=== PATIENT | male | born 1940 | race Caucasian/White ===

== ENCOUNTER → 2016-06-26 | Outpatient (CLI) | payer MEDICARE ==
--- NOTE | 2016-06-26 13:35 | CTL ---
EXAMINATION TYPE: CT Low Dose Lung DATE OF EXAM ORDERED: 06/26/2016 1:05 PM COMPARISON: None HISTORY: Tobacco use. Lung cancer screening CT DLP: [address] CTDI: 3.27 mGy Automated exposure control for dose reduction was used. SCREENING VISIT: Initial COMPARISON: None TECHNIQUE: Low dose computed tomography scan was performed through the chest at 1 mm thick sections a nd reconstructed images in the coronal plane at [address] DIAGNOSTIC QUALITY: Limited, but interpretable FINDINGS: LUNG NODULES: None. LUNGS: COPD: Severity: None Fibrosis: Severity: None Lymph nodes: No enlarged Other findings: Small area of pneumonitis within the right cardiomediastinal recess anteriorly. RIGHT PLEURAL SPACE: Effusion: None Calcification: None Thickening: None Pneumothorax: None LEFT PLEURAL SPACE: Effusion: None Calcification: None Thickening: None Pneumothorax: None HEART: Heart Size: Normal Coronary calcification: Yes Pericardial effusion: No Coronary calcification: Yes OTHER FINDINGS: Upper abdomen: Unremarkable Bony thorax: Normal Supraclavicular region: Normal Other: Ascending thoracic aortic level the main pulmonary artery is 3.9 cm. The main pulmonary artery bifurcation is 3.0 cm. IMPRESSION: 1. No suspicious changes to suggest neoplasm. 2. Limited examination. FOLLOW UP CT CHEST RECOMMENDATION: As clinically indicated, screening on schedule CT LUNG RAD: Lung rad 2
== END | disposition home or self-care (01) ==
LOC: RADCTMAIN 12:24
PROVIDERS: ATTEND Internal Medicine Sleep Medicine
DX: Z12.2 Encounter for screening for malignant neoplasm of respiratory organs (principal); Z87.891 Personal history of nicotine dependence

== ENCOUNTER → 2016-07-02 | Outpatient (CLI) | payer MEDICARE ==
--- NOTE | 2016-07-02 08:26 | MR ---
EXAMINATION TYPE: MR lumbar spine wo con DATE OF EXAM: 07/02/2016 7:27 AM COMPARISON: CT abdomen April 08, 2016 HISTORY: Low back pain and lumbar disc disease per order. Pain for 4 months into bilateral buttocks p er patient TECHNIQUE: Multiplanar, multisequence imaging of the lumbar spine is performed without IV contrast. FINDINGS: Exam is slightly suboptimal due to patient's large body habitus. Sagittal images of the lum bar spine show vertebral body heights and alignment to appear satisfactory. Multilevel disc desiccati on is seen. Vacuum disc phenomenon is present at L3-L4 and L5-S1 levels. There is mild disc space jef rowing L3-L4 level. There is advanced disc space narrowing with heterogeneous Modic type II endplate changes and moderate spurring at L5-S1 level. Generalized spinal canal narrowing in the lower lumbar spine is present. Posterior disc herniation L5-S1 level as seen on sagittal images. There is addition al mild multilevel anterior spurring in the mid to lower lumbar spine. The conus medullaris is normal in position and signal ending at inferior L1 vertebral body level. Axial images are significantly degraded by artifact related to patient's body habitus. Axial images s how the T12-L1, L1-L2, and L2-L3 levels to likely be within normal limits. Axial images at the L3-L4 level show mild facet degenerative changes bilaterally. There is mild to mo derate broad disc bulge mildly effacing anterior thecal sac on axial image 13. There is mild right gr eater than left anterior inferior neural foraminal narrowing at this level identified. Axial images at L4-L5 level show mild facet degenerative changes bilaterally. There is mild broad dis c bulge present. Spinal canal is minimally effaced anteriorly. There is mild to moderate left and mil d right-sided anterior inferior neural foraminal narrowing noted. Axial images at L5-S1 level show mild facet degenerative changes bilaterally. There is left paracentr al focal disc protrusion. There is prominence of epidural fat at this level noted. There is more ashutosh re bilateral neural foraminal narrowing at this level with effacement of both L5 nerves suspected on sagittal images 12 and 13 on the right and sagittal images 2 and 3 on the left. IMPRESSION: Multilevel degenerative changes in the lumbar spine with findings most pronounced at L5-S 1 level noted, there is marked disc space narrowing and moderate to severe spurring. There appears to be advanced bilateral neural foraminal narrowing with suspected effacement of both L5 nerves.
== END | disposition home or self-care (01) ==
LOC: RADMRIMAIN 06:37
PROVIDERS: ATTEND Orthopaedic Surgery Orthopaedic Surgery of the Spine
DX: M48.06 Spinal stenosis, lumbar region (principal); M47.817 Spondylosis without myelopathy or radiculopathy, lumbosacral region
CPT/HCPCS: 72148

== ENCOUNTER → 2016-07-11 | Outpatient (CLI) | payer MEDICARE ==
--- NOTE | 2016-07-11 15:17 | US ---
EXAMINATION TYPE: US abdomen complete DATE OF EXAM: 07/11/2016 2:08 PM COMPARISON: NONE CLINICAL HISTORY: R18.8 Ascites. EXAM MEASUREMENTS: Liver Length: 16.6 cm Gallbladder Wall: 0.4 cm CBD: 0.2 cm Spleen: 16.5 Right Kidney: 11.9 x 4.8 x 5.0cm Left Kidney:14.2 x 5.6 x 5.7 TECHNOLOGIST IMPRESSION: Patient of large body habitus carrying most of his weight in his abdomen, e xtensive edema in tissue, and excessive overlying bowel gas Pancreas: portions visualized wnl, partially obscured by overlying bowel gas Liver: upper limits of normal in size, heterogeneous Gallbladder: not well visualized due to body habitus/overlying bowel gas, difficult to exclude some sludge Evidence for sonographic Vu's sign: no CBD: wnl Spleen: splenomegaly Right Kidney: wnl Left Kidney: parapelvic cyst measuring 1.1 x 1.6 x1.8cm Upper IVC: wnl Abd Aorta: only able to visualize proximally due to large abd/overlying bowel, prox wnl Small amount of ascites. IMPRESSION: 1. Small amount of ascites. 2. Left peripelvic cyst. 3. There is limitation due to patient body habitus
== END | disposition home or self-care (01) ==
LOC: RADUSWWP 13:30
PROVIDERS: ATTEND Internal Medicine Sleep Medicine
DX: R18.8 Other ascites (principal); R93.9 Diagnostic imaging inconclusive due to excess body fat of patient
CPT/HCPCS: 76700

== ENCOUNTER 2016-07-30 15:17 | Inpatient (IN) | payer MEDICARE ==
[2016-07-30] MEDS ORDERED: RX INFO: IV CONTRAST WAS GIVEN 1 EACH MISC MISCELLANE PRN (17:11)
--- NOTE | 2016-07-30 17:23 | ED ---
General Adult HPI - General Chief complaint: Abdominal Pain Stated complaint: fast breathing Time Seen by Provider: 07/30/16 16:59 Source: patient, family Mode of arrival: wheelchair Limitations: no limitations - History of Present Illness Initial comments: 75-year-old male patient presents to emergency department today for complaints of abdominal distention and shortness of breath. Patient states that he has noticed an increase in his abdominal girth over the last couple of days. Patient states also that for the last couple of days he has had increased shortness of breath, especially with activity. Patient does notice some tenderness in the right upper quadrant but denies any pain at rest. Patient denies any nausea, vomiting, diarrhea, or constipation. Patient denies any chest pain, dizziness, or weakness. He reports that his stool is lidar analyst in color and his urine is dark and yellow. Patient also reports some swelling of his feet and ankles. Patient does have a known history of fatty liver and cirrhosis for which he is treated by Dr. Shaw. - Related Data Home Medications Medication Instructions Recorded Confirmed Insulin Aspart [NovoLOG Flexpen] See Protocol SQ AC-TID 04/23/15 07/30/16 Insulin Glargine [Lantus] 80 unit SQ HS 04/23/15 07/30/16 Cyanocobalamin [Vitamin B-12] 500 mcg PO DAILY 07/30/16 07/30/16 Divalproex Sodium [Depakote] 1,000 mg PO HS 07/30/16 07/30/16 Docusate [Colace] 100 mg PO DAILY 07/30/16 07/30/16 Furosemide [Lasix] 20 mg PO DAILY 07/30/16 07/30/16 Gabapentin [Neurontin] 300 mg PO TID 07/30/16 07/30/16 QUEtiapine FUMARATE [SEROquel] 100 mg PO QAM 07/30/16 07/30/16 QUEtiapine [SEROquel] 200 mg PO HS 07/30/16 07/30/16 Spironolactone [Aldactone] 25 mg PO DAILY 07/30/16 07/30/16 metFORMIN HCL 1,000 mg PO BID 07/30/16 07/30/16 Previous Rx's Medication Instructions Recorded Artificial Tears-Hypromellose 2 drops LEFT EYE Q1H PRN #0 bottle 05/09/15 [Artificial Tear Drops] Atorvastatin Calcium [Lipitor] 80 mg PO DAILY #30 tablet 05/09/15 Cholecalciferol [Vitamin D3] 5,000 unit PO DAILY@1200 #150 tab 05/09/15 Allergies Allergy/AdvReac Type Severity Reaction Status Date / Time No Known Allergies Allergy Verified 07/30/16 16:15 Review of Systems ROS Statement: Those systems with pertinent positive or pertinent negative responses have been documented in the HPI. ROS Other: All systems not noted in ROS Statement are negative. Past Medical History Past Medical History: COPD, Diabetes Mellitus, Hyperlipidemia, Hypertension, Liver Disease, Prostate Disorder, Thyroid Disorder Additional Past Medical History / Comment(s): neuropathy, oxygen use at night, blood in stool, fatty liver-'alpha 1", arthritis, rash on stomach, CIRRosis History of Any Multi-Drug Resistant Organisms: MRSA Date of last positivie culture/infection: 2009 approx MDRO Source:: rt hand Past Surgical History: Orthopedic Surgery Additional Past Surgical History / Comment(s): alcon carpal tunnel, alcon rotator cuff shoulders, alcon cataracts, surgery on eyelid-rt eye Past Anesthesia/Blood Transfusion Reactions: No Reported Reaction Past Psychological History: Anxiety, Depression Smoking Status: Former smoker Past Alcohol Use History: None Reported Additional Past Alcohol Use History / Comment(s): Patient was a smoker of 2 packs per day for 43 years. He quit 7 years ago. He does have a history of heavy alcohol use but does not drink now. Patient lives at home with his who is his guardian. He worked as a shingles roofer helper in the past for 30 years. Past Drug Use History: None Reported - Past Family History Son(s) Family Medical History: Cancer Additional Family Medical History / Comment(s): She has 3 sons and one has from brain cancer, one due to a fall 1 antitrypsin disorder that required lung transplant, one son from home fire Father Family Medical History: Liver Disease Additional Family Medical History / Comment(s): Father from alcoholism. Mother Additional Family Medical History / Comment(s): A she is unsure when his mother from. Brother(s) Additional Family Medical History / Comment(s): Patient was one of 16 children and detailed history is not able to be obtained from the patient. General Exam Limitations: no limitations General appearance: alert, in no apparent distress Head exam: Present: atraumatic, normocephalic Eye exam: Present: normal appearance, PERRL, EOMI. Absent: scleral icterus, conjunctival injection, nystagmus, periorbital swelling ENT exam: Present: normal exam, normal oropharynx, mucous membranes moist, TM's normal bilaterally. Absent: mucous membranes dry Neck exam: Present: normal inspection. Absent: tenderness, lymphadenopathy Respiratory exam: Present: rales (Rt Lower lobe). Absent: respiratory distress , wheezes, rhonchi, stridor, chest wall tenderness, accessory muscle use, decreased breath sounds Cardiovascular Exam: Present: regular rate, normal rhythm, normal heart sounds. Absent: irregular rhythm, systolic murmur, diastolic murmur, rubs, gallop, clicks GI/Abdominal exam: Present: distended, tenderness (Right upper quadrant tenderness.), normal bowel sounds, organomegaly, other (Denies large, rounded, and firm. Tympany noted upon percussion all quadrants.). Absent: soft, guarding, rebound, rigid Extremities exam: Present: normal inspection Neurological exam: Present: alert, oriented X3, CN II-XII intact. Absent: altered Psychiatric exam: Present: normal affect, normal mood Skin exam: Present: warm, dry, intact, normal color. Absent: rash, cyanosis, urticaria Course Vital Signs 07/30/16 07/30/16 07/30/16 16:11 17:56 19:33 Temperature 98.4 F 98.2 F Pulse Rate 79 71 82 Respiratory 20 18 18 Rate Blood Pressure 174/71 140/62 124/59 O2 Sat by Pulse 91 L 94 L 96 Oximetry EKG Findings - EKG Comments: EKG Findings:: EKG obtained at 1629 reveals normal sinus rhythm, with a left axis deviation, low voltage QRS, septal infarct, age undetermined. Ventricular rate 89, CO interval 172, QRS duration 80, QT 358, QTC 435. Medical Decision Making - Medical Decision Making 75-year-old male patient presented to emergency department today for complaints of increased swelling to his abdomen, mild swelling to his feet and ankles, increase in shortness of breath over the last couple of days. Patient does have a known history of cirrhosis and fatty liver. Patient has had abdominal ascites before but has never been enough fluid to drain. We did obtain a CT of the abdomen and pelvis which showed moderate marked peritoneal fluid in all 4 quadrants. Patient did receive an EKG and chest x-ray which showed no acute processes. Patient will be admitted with GI consult for evaluation of the ascites. Case has been discussed with Dr. Alpesh MORRISON attending. - Lab Data Result diagrams: 07/30/16 17:20 07/30/16 17:20 Lab Results 07/30/16 07/30/16 07/30/16 Range/Units 17:20 17:20 17:20 WBC 6.1 (3.8-10.6) k/uL RBC 4.11 L (4.30-5.90) m/uL Hgb 14.4 (13.0-17.5) gm/dL Hct 40.5 (39.0-53.0) % MCV 98.5 (80.0-100.0) fL MCH 35.0 (25.0-35.0) pg MCHC 35.5 (31.0-37.0) g/dL RDW 15.0 (11.5-15.5) % Plt Count 127 L (150-450) k/uL Neutrophils % 52 % Lymphocytes % 33 % Monocytes % 9 % Eosinophils % 2 % Basophils % 1 % Neutrophils # 3.2 (1.3-7.7) k/uL Lymphocytes # 2.0 (1.0-4.8) k/uL Monocytes # 0.6 (0-1.0) k/uL Eosinophils # 0.1 (0-0.7) k/uL Basophils # 0.0 (0-0.2) k/uL PT (9.0-12.0) sec INR (<1.1) APTT (22.0-30.0) sec Sodium 140 (137-145) mmol/L Potassium 4.3 (3.5-5.1) mmol/L Chloride 100 (98-107) mmol/L Carbon Dioxide 28 (22-30) mmol/L Anion Gap 12 mmol/L BUN 21 H (9-20) mg/dL Creatinine 0.82 (0.66-1.25) mg/dL Est GFR (MDRD) Af Amer >60 (>60 ml/min/1.73 sqM) Est GFR (MDRD) Non-Af >60 (>60 ml/min/1.73 sqM) Glucose 141 H (74-99) mg/dL Calcium 9.1 (8.4-10.2) mg/dL Total Bilirubin 1.8 H (0.2-1.3) mg/dL AST 88 H (17-59) U/L ALT 58 (21-72) U/L Alkaline Phosphatase 128 H (38-126) U/L Total Creatine Kinase 294 H (55-170) U/L CK-MB (CK-2) 2.3 (0.0-2.4) ng/mL CK-MB (CK-2) Rel Index 0.8 Troponin I <0.012 (0.000-0.034) ng/mL NT-Pro-B Natriuret Pep pg/mL Total Protein 7.8 (6.3-8.2) g/dL Albumin 3.4 L (3.5-5.0) g/dL Amylase 35 (30-110) U/L Lipase 99 (23-300) U/L Urine Color Urine Appearance (Clear) Urine pH (5.0-8.0) Ur Specific Wolbach (1.001-1.035) Urine Protein (Negative) Urine Glucose (UA) (Negative) Urine Ketones (Negative) Urine Blood (Negative) Urine Nitrate (Negative) Urine Bilirubin (Negative) Urine Urobilinogen (<2.0) mg/dL Ur Leukocyte Esterase (Negative) 07/30/16 07/30/16 07/30/16 Range/Units 17:20 17:20 17:45 WBC (3.8-10.6) k/uL RBC (4.30-5.90) m/uL Hgb (13.0-17.5) gm/dL Hct (39.0-53.0) % MCV (80.0-100.0) fL MCH (25.0-35.0) pg MCHC (31.0-37.0) g/dL RDW (11.5-15.5) % Plt Count (150-450) k/uL Neutrophils % % Lymphocytes % % Monocytes % % Eosinophils % % Basophils % % Neutrophils # (1.3-7.7) k/uL Lymphocytes # (1.0-4.8) k/uL Monocytes # (0-1.0) k/uL Eosinophils # (0-0.7) k/uL Basophils # (0-0.2) k/uL PT 14.1 H (9.0-12.0) sec INR 1.4 (<1.1) APTT 27.1 (22.0-30.0) sec Sodium (137-145) mmol/L Potassium (3.5-5.1) mmol/L Chloride (98-107) mmol/L Carbon Dioxide (22-30) mmol/L Anion Gap mmol/L BUN (9-20) mg/dL Creatinine (0.66-1.25) mg/dL Est GFR (MDRD) Af Amer (>60 ml/min/1.73 sqM) Est GFR (MDRD) Non-Af (>60 ml/min/1.73 sqM) Glucose (74-99) mg/dL Calcium (8.4-10.2) mg/dL Total Bilirubin (0.2-1.3) mg/dL AST (17-59) U/L ALT (21-72) U/L Alkaline Phosphatase (38-126) U/L Total Creatine Kinase (55-170) U/L CK-MB (CK-2) (0.0-2.4) ng/mL CK-MB (CK-2) Rel Index Troponin I (0.000-0.034) ng/mL NT-Pro-B Natriuret Pep 153 pg/mL Total Protein (6.3-8.2) g/dL Albumin (3.5-5.0) g/dL Amylase (30-110) U/L Lipase (23-300) U/L Urine Color Yellow Urine Appearance Clear (Clear) Urine pH 5.0 (5.0-8.0) Ur Specific Wolbach 1.013 (1.001-1.035) Urine Protein Negative (Negative) Urine Glucose (UA) Negative (Negative) Urine Ketones Negative (Negative) Urine Blood Negative (Negative) Urine Nitrate Negative (Negative) Urine Bilirubin Negative (Negative) Urine Urobilinogen 2.0 (<2.0) mg/dL Ur Leukocyte Esterase Negative (Negative) - Radiology Data Radiology results: report reviewed, image reviewed CT of the abdomen and pelvis revealed a new finding of moderate-marked peritoneal fluid in all 4 quadrants of the abdomen and pelvis. Chest x-ray reveals no acute process. Disposition Clinical Impression: Ascites, Cirrhosis Disposition: ADMITTED IP TO THIS [facility] Condition: Stable Decision to Admit Reason: Admit from EC Decision Date: 07/30/16 Decision Time: 19:50
[2016-07-30 17:34] LABS: Basophils % (A) 1 %; CH 34.4; CHCM 35.1; Eosinophils # (A) 0.1 k/uL (0-0.7); Eosinophils % (A) 2 %; HCT 40.5 % (39.0-53.0); HDW 2.58; HGB 14.4 gm/dL (13.0-17.5); Luc # (Auto) 0.17; Luc % (Auto) 3; Lymphocytes % (A) 33 %; MCHC 35.5 g/dL (31.0-37.0); MCV 98.5 fL (80.0-100.0); Mean Platelet Volume 7.4; Monocytes # (A) 0.6 k/uL (0-1.0); Monocytes % (A) 9 %; Neutrophils # (A) 3.2 k/uL (1.3-7.7); Neutrophils % (A) 52 %; RBC 4.11 m/uL (4.30-5.90); WBC 6.1 k/uL (3.8-10.6); WBC (Perox) 6.12
[2016-07-30 17:43] LABS: INR 1.4 (<1.1); Partial Thromboplastin Time 27.1 sec (22.0-30.0); Prothrombin Time 14.1 sec (9.0-12.0)
[2016-07-30 17:51] LABS: ALT 58 U/L (21-72); AST 88 U/L (17-59); Alkaline Phosphatase 128 U/L (38-126); Amylase 35 U/L (30-110); Anion Gap 12 mmol/L; Blood Urea Nitrogen 21 mg/dL (9-20); Calcium 9.1 mg/dL (8.4-10.2); Carbon Dioxide 28 mmol/L (22-30); Chloride 100 mmol/L (98-107); Glucose 141 mg/dL (74-99); Non-African American GFR(MDRD) >60 (>60 ml/min/1.73 sqM); Potassium 4.3 mmol/L (3.5-5.1); Sodium 140 mmol/L (137-145); Total Bilirubin 1.8 mg/dL (0.2-1.3); Total Protein 7.8 g/dL (6.3-8.2)
[2016-07-30 17:52] LABS: Creatine Kinase 294 U/L (55-170)
[2016-07-30 18:04] LABS: Appearance,Urine Clear (Clear); Bilirubin,Urine Negative (Negative); Glucose,Urine (UA) Negative (Negative); Ketones,Urine Negative (Negative); Leukocyte Esterase,Urine Negative (Negative); Nitrite,Urine Negative (Negative); Protein,Urine Negative (Negative); Specific Gravity,Urine 1.013 (1.001-1.035); UA Billing (MACRO vs. MICRO) CHEM
[2016-07-30 18:06] LABS: Creatine Kinase MB 2.3 ng/mL (0.0-2.4); Troponin I <0.012 ng/mL (0.000-0.034)
--- NOTE | 2016-07-30 19:18 | CT ---
EXAMINATION TYPE: CT abdomen pelvis w con DATE OF EXAM: 07/30/2016 6:23 PM COMPARISON: CT April 08, 2016 HISTORY: Abdominal bloating. CT DLP: 1760.00 mGycm Automated exposure control for dose reduction was used. TECHNIQUE: Helical acquisition of images was performed from the lung bases through the pelvis. CONTRAST: Performed without Oral Contrast and with IV Contrast; patient injected with 100 mL of Omnip aque 300. FINDINGS: Positive findings include new moderate-marked peritoneal fluid throughout all 4 quadrants o f the abdomen and pelvis. There is also omental reticulation, which is greater on the right. This is a nonspecific finding and may be simply related to collateral vascularization. Finally, there is unchanged hepatosplenomegaly with scalloping of the liver margins. Pertinent negatives: There is no bowel or biliary or urinary tract obstruction. There is no pneumatos is or pneumoperitoneum. There is no venous obstruction. There is no ramon mass. There are scattered s ubcentimeter lymph nodes, without geographic localization and without definite size criteria for silver k adenopathy. IMPRESSION: Most prominent new finding is moderate-marked peritoneal fluid in all 4 quadrants of the abdomen and pelvis.
--- NOTE | 2016-07-30 19:31 | XR ---
EXAMINATION TYPE: XR chest 2V DATE OF EXAM: 07/30/2016 6:06 PM COMPARISON: 06/08/2015 HISTORY: Dyspnea with abdominal distention TECHNIQUE: Frontal and lateral views of the chest are obtained. FINDINGS: There is no focal air space opacity, pleural effusion, or pneumothorax seen. The cardiac silhouette size is within normal limits. The osseous structures are intact. IMPRESSION: No acute process.
[2016-07-30] MEDS ORDERED: NALOXONE 0.4 MG/ML 1 ML VIAL IV PRN (19:51)
[2016-07-30] MEDS ORDERED: FUROSEMIDE 10 MG/ML 4 ML VIAL IV STA (19:57)
[2016-07-30 22:53] LABS: Hemoglobin A1C 7.2 % (4.2-6.1)
[2016-07-30 23:23] LABS: Glucose,Whole Blood 169 mg/dL (75-99)
[2016-07-31] MEDS: GABAPENTIN 300 MG CAP PO SCH ×4 (00:32→20:52)
[2016-07-31] MEDS: INSULIN LISPRO (humaLOG) 300 UNIT/3 ML VIAL SQ SCH ×5 (00:32→21:34)
[2016-07-31 07:39] LABS: Glucose,Whole Blood 90 mg/dL (75-99)
[2016-07-31] MEDS ORDERED: SPIRONOLACTONE 25 MG TAB PO SCH (09:00)
[2016-07-31] MEDS: QUEtiapine 100 MG TAB PO SCH (09:09)
[2016-07-31] MEDS ORDERED: ARTIFICIAL TEARS-HYPROMELLOSE DROPS 15 ML BTL LEFT EYE PRN (11:20)
[2016-07-31 11:35] LABS: Glucose,Whole Blood 175 mg/dL (75-99)
[2016-07-31 11:37] LABS: INR 1.4 (<1.1)
[2016-07-31 11:38] LABS: Prothrombin Time 13.4 sec (9.0-12.0)
[2016-07-31 11:44] LABS: CH 34.4; CHCM 34.8; HCT 38.1 % (39.0-53.0); HDW 2.58; HGB 13.1 gm/dL (13.0-17.5); MCH 34.2 pg (25.0-35.0); MCHC 34.5 g/dL (31.0-37.0); MCV 99.1 fL (80.0-100.0); Macrocytosis Slight; Mean Platelet Volume 7.5; RBC 3.84 m/uL (4.30-5.90); WBC 4.9 k/uL (3.8-10.6)
[2016-07-31] MEDS: metFORMIN 500 MG TAB PO SCH ×2 (12:24→17:29)
[2016-07-31] MEDS: ATORVASTATIN 80 MG TAB PO SCH (12:24)
[2016-07-31] MEDS: FUROSEMIDE 40 MG TAB PO SCH ×2 (12:24→15:59)
[2016-07-31] MEDS: SPIRONOLACTONE 25 MG TAB PO SCH (12:24)
[2016-07-31] MEDS: CYANOCOBALAMIN 500 MCG TAB PO SCH (12:24)
--- NOTE | 2016-07-31 12:31 | HP ---
DATE OF ADMISSION: 07/30/2016 PRESENTING COMPLAINT: Abdominal distention. HISTORY OF PRESENTING COMPLAINT: This is a 75-year-old patient of Dr. Eisenberg. Chronic stable medical conditions include COPD, diabetes, hyperlipidemia, hypertension, BPH, hypothyroid, peripheral neuropathy, osteoarthritis, cirrhosis from alcohol, depression, anxiety. Patient presents with abdomen getting grossly distended, bloated, affecting his breathing. Edema has been going on in the lower extremity. Appetite is fair. Admitted for the same. Slight discomfort. No fever. REVIEW OF SYSTEMS: CONSTITUTIONAL: Tired. HEENT: None. RESPIRATORY: Shortness of breath. CARDIOVASCULAR: No chest pain. GASTROINTESTINAL: None. GENITOURINARY: None. MUSCULOSKELETAL: Aches and pains in the joints. DERMATOLOGICAL: None. HEMATOLOGICAL: None. LYMPHATICS: None. PSYCHIATRY: Depression controlled. NEUROLOGICAL: Numbness and tingling in the hands and feet. Past medical history of COPD, diabetes, hyperlipidemia, hypertension, BPH, hypothyroid, peripheral neuropathy, osteoarthritis, alcoholic cirrhosis, depression, anxiety. PAST SURGICAL HISTORY: Orthopedic surgery, bilateral carpal tunnel, bilateral rotator cuff, bilateral cataract, surgery on the right eyelid. SOCIAL HISTORY: The patient smoked 2 packs a day for 43 years; stopped 7 years ago. The patient drank heavy up until about 7 years ago. Patient was a purchasing associate. . FAMILY HISTORY: Patient's one son from brain cancer. One had alpha-1 antitrypsin disorder secondary to lung transplant and one son from a home fire. HOME MEDICATIONS: 1. Metformin 1000 mg p.o. b.i.d. 2. Aldactone 25 mg p.o. daily. 3. Seroquel 100 mg p.o. daily. 4. Seroquel 200 mg p.o. q.h.s. 5. Lantus 80 units subcu q.h.s. 6. NovoLog a.c. t.i.d. 7. Neurontin 300 mg p.o. t.i.d. 8. Lasix 20 mg p.o. daily. 9. Colace 100 mg p.o. daily. 10. Depakote 1000 mg p.o. q.h.s. 11. Vitamin B12, 500 mcg p.o. daily. 12. Vitamin D3, 5000 units p.o. daily at noon. 13. Lipitor 80 mg p.o. daily. 14. Artificial tears 2 drops left eye q.1 p.r.n. ALLERGIES: None. ON EXAMINATION: VITAL SIGNS ON PRESENTATION: Temperature 98.4, pulse 79, respiration 20, blood pressure 174/71, pulse 91% on room air. GENERAL APPEARANCE: Well built, lying in bed, BMI of 39.5, awake. EYES: Pupils equal. Conjunctivae normal. HEENT: External appearance of nose and ears normal. Oral cavity normal. NECK: JVD unable to assess. Mass not palpable. RESPIRATORY: Effort increased. LUNGS: Diminished breath sounds. CARDIOVASCULAR: First and second sounds normal. Edema present. ABDOMEN: Distended, soft. Liver and spleen not palpable. ( ) in the flanks. LYMPHATIC: No lymph nodes palpable in the neck or axillae. PSYCHIATRY: Alert and oriented x3. Mood and affect normal. NEUROLOGICAL: Pupils equal. Cranial nerves grossly intact. Power and sensation grossly intact. INVESTIGATIONS: White count 6.1, hemoglobin 14.4. Potassium 4.3, BUN 21, creatinine 0.82. AST 88, ALT 58. EKG normal sinus rhythm. CT scan of the abdomen shows new moderate marked peritoneal fluid; hepatomegaly. ASSESSMENT: 1. Alcoholic cirrhosis with hepatomegaly likely portal hypertension, causing secondary large ascites causing symptoms. 2. Chronic obstructive pulmonary disease in an ex-smoker. 3. Diabetes mellitus type 2. 4. Hyperlipidemia. 5. Essential hypertension. 6. Benign prostatic hypertrophy. 7. Hypothyroidism. 8. Diabetes mellitus type 2, peripheral neuropathy. 9. Primary osteoarthritis multiple joints, bilateral. 10. Depression, anxiety, controlled. PLAN: Patient's home medications are resumed. Patient will get SCDs for DVT prophylaxis. We will be more aggressive with the diuretics and also order ultrasound-guided paracentesis for symptom control. Will increase patient's Aldactone to 100 mg a day and also add Lasix. Care was discussed with the patient.
--- NOTE | 2016-07-31 13:53 | P.CONS ---
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 Denies fever or chills. CT reported ascites in all 4 quadrants. TB 1.8. AST 88 ALT 58 AP 108 INR 1.4. Platelet 102. Review of Systems Constitutional: Denies fever, chills, sweats, weight gain, or loss. HEENT: Negative for migraines, blurred vision or loss, earaches, drainage, tinnitus, oral mucosal lesions, dysphagia, or odynophagia. Cardiac: HTN. Hyperlipidemia. Denies CP or arrythmia. Respiratory: COPD> Negative for shortness of breath, hemoptysis, cough, or sputum production. Gastrointestinal: See HPI for pertinent findings. Genitourinary: Negative for hematuria, urgency, frequency, polyuria, dysuria, or penile discharge. Musculoskeletal: Chronic muscle aches, osteo-arthritis. Neurologic: Negative for stroke or TIA. Endocrine: Diabetes mellitus. Hypothyroid. Skin: MRSA. Negative for rash or itching. Psychiatric: depression and anxiety All systems: negative (See HPI) Past Medical History Past Medical History: COPD, Diabetes Mellitus, Hyperlipidemia, Hypertension, Liver Disease, Prostate Disorder, Thyroid Disorder Additional Past Medical History / Comment(s): neuropathy, oxygen use at night, blood in stool, fatty liver-'alpha 1", arthritis, rash on stomach, CIRRosis History of Any Multi-Drug Resistant Organisms: MRSA Year Discovered:: 2009 approx MDRO Source:: rt hand Past Surgical History: Orthopedic Surgery Additional Past Surgical History / Comment(s): alcon carpal tunnel, alcon rotator cuff shoulders, alcon cataracts, surgery on eyelid-rt eye Past Anesthesia/Blood Transfusion Reactions: No Reported Reaction Past Psychological History: Anxiety, Depression Smoking Status: Former smoker Past Alcohol Use History: None Reported Additional Past Alcohol Use History / Comment(s): Patient was a smoker of 2 packs per day for 43 years. He quit 7 years ago. He does have a history of heavy alcohol use but does not drink now. Patient lives at home with his who is his guardian. 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 Past Drug Use History: None Reported - Past Family History Son(s) Family Medical History: Cancer Additional Family Medical History / Comment(s): She has 3 sons and one has from brain cancer, one due to a fall 1 antitrypsin disorder that required lung transplant, one son from home fire Father Family Medical History: Liver Disease Additional Family Medical History / Comment(s): Father from alcoholism. Mother Additional Family Medical History / Comment(s): A she is unsure when his mother from. Brother(s) Additional Family Medical History / Comment(s): Patient was one of 16 children and detailed history is not able to be obtained from the patient. Medications and Allergies Home Medications Medication Instructions Recorded Confirmed Type Insulin Aspart [NovoLOG Flexpen] See Protocol SQ AC-TID 04/23/15 07/30/16 History Insulin Glargine [Lantus] 80 unit SQ HS 04/23/15 07/30/16 History Cyanocobalamin [Vitamin B-12] 500 mcg PO DAILY 07/30/16 07/30/16 History Divalproex Sodium [Depakote] 1,000 mg PO HS 07/30/16 07/30/16 History Docusate [Colace] 100 mg PO DAILY 07/30/16 07/30/16 History Furosemide [Lasix] 20 mg PO DAILY 07/30/16 07/30/16 History Gabapentin [Neurontin] 300 mg PO TID 07/30/16 07/30/16 History QUEtiapine FUMARATE [SEROquel] 100 mg PO QAM 07/30/16 07/30/16 History QUEtiapine [SEROquel] 200 mg PO HS 07/30/16 07/30/16 History Spironolactone [Aldactone] 25 mg PO DAILY 07/30/16 07/30/16 History metFORMIN HCL 1,000 mg PO BID 07/30/16 07/30/16 History Allergies Allergy/AdvReac Type Severity Reaction Status Date / Time No Known Allergies Allergy Verified 07/30/16 16:15 Physical Exam Vitals: Vital Signs Temp Pulse Pulse Pulse Resp BP BP 07/31/16 10:00 97.0 F L 77 22 133/72 07/31/16 07:00 97.0 F L 77 22 133/72 07/30/16 23:00 98.3 F 90 16 155/70 07/30/16 21:15 98.3 F 81 18 161/85 Pulse Ox 07/31/16 10:00 93 L 07/31/16 07:00 93 L 07/30/16 23:00 94 L 07/30/16 21:15 96 Intake and Output 07/30/16 07/31/16 07/31/16 22:59 06:59 14:59 Intake Total 200 720 Balance 200 720 Intake: Oral 200 720 Other: # Voids 1 Weight 111 kg Patient Weight 08/01/16 06:59 Weight 111 kg - Constitutional General appearance: average body habitus, obese - EENT Eyes: normal appearance ENT: hard of hearing - Respiratory Respiratory: bilateral: CTA - Cardiovascular Heart sounds: normal: S1, S2 - Gastrointestinal distended with moderate tense ascites General gastrointestinal: normal bowel sounds - Neurologic Neurologic: CNII-XII intact - Psychiatric Psychiatric: A&O x's 3 Results CBC & Chem 7: 07/31/16 11:06 07/30/16 17:20 Labs: Abnormal Lab Results - Last 24 Hours (Table) 07/30/16 07/31/16 07/31/16 Range/Units 23:03 11:06 11:06 RBC 3.84 L (4.30-5.90) m/uL Hct 38.1 L (39.0-53.0) % Plt Count 102 L (150-450) k/uL PT 13.4 H (9.0-12.0) sec POC Glucose (mg/dL) 169 H (75-99) mg/dL 07/31/16 Range/Units 11:33 RBC (4.30-5.90) m/uL Hct (39.0-53.0) % Plt Count (150-450) k/uL PT (9.0-12.0) sec POC Glucose (mg/dL) 175 H (75-99) mg/dL CT scan - abdomen: report reviewed (reviewed by Dr. mir) Assessment and Plan (1) Ascites Status: Acute (2) Cirrhosis Status: Acute Plan: 1. Diagnostic paracentesis with cytology. Lasix 40mg BID. Aldactone 100mg daily. 2. RTO 1-2 weeks. Low salt diet. Thank you for the consultation. Assessment and plan of care discussed with Dr.. Mir.
[2016-07-31] MEDS: HYDROcodone/APAP 5-325MG 1 EACH TAB PO PRN (14:04)
--- NOTE | 2016-07-31 16:01 | US ---
EXAMINATION TYPE: US paracentesis abd w/image DATE OF EXAM: 07/31/2016 3:39 PM COMPARISON: NONE HISTORY: Ascites. PROCEDURE: Maximal barrier technique was utilized. The skin overlying a suitable pocket of fluid was localized with ultrasound and the overlying skin was prepped and draped. Ultrasound was utilized with sterile technique. Lidocaine was used for local anesthesia and a skin pam made with a scalpel. An 18-gauge n eedle was advanced under direct ultrasound guidance into a suitable pocket of fluid and approximately 60 cc of serous fluid were removed. Needle was withdrawn and hemostasis achieved. There is no immed iate complication; the patient is discharged in stable condition. IMPRESSION: STATUS POST ULTRASOUND GUIDED PARACENTESIS FOR DIAGNOSTIC PURPOSES OF ASCITES. THIS PRO CEDURE WAS PERFORMED BY THE UNDERSIGNED.
[2016-07-31] MEDS: FUROSEMIDE 10 MG/ML 10 ML VIAL IV SCH ×2 (17:26→23:07)
[2016-07-31 17:28] LABS: Glucose,Whole Blood 168 mg/dL (75-99)
[2016-07-31 19:15] LABS: RBC, Body Fluid 1030 /uL
[2016-07-31] MEDS: INSULIN GLARGINE 100 UNIT/ML 10 ML VIAL SQ SCH ×2 (20:18)
[2016-07-31] MEDS: DIVALPROEX 500 MG TABLET.DR PO SCH ×2 (20:18)
[2016-07-31] MEDS: QUEtiapine 200 MG TAB PO SCH ×2 (20:19)
[2016-07-31 21:26] LABS: Glucose,Whole Blood 128 mg/dL (75-99)
[2016-08-01 00:38] VITALS: RESP 20
[2016-08-01 07:15] LABS: Glucose,Whole Blood 86 mg/dL (75-99)
[2016-08-01] MEDS: INSULIN LISPRO (humaLOG) 300 UNIT/3 ML VIAL SQ SCH ×2 (07:28→11:49)
[2016-08-01 07:30] VITALS: BP 140/77; TEMP 97
[2016-08-01] MEDS: FUROSEMIDE 10 MG/ML 10 ML VIAL IV SCH (08:15)
[2016-08-01] MEDS: SPIRONOLACTONE 25 MG TAB PO SCH (08:16)
[2016-08-01] MEDS: metFORMIN 500 MG TAB PO SCH (08:16)
[2016-08-01] MEDS: CYANOCOBALAMIN 500 MCG TAB PO SCH (08:17)
[2016-08-01] MEDS: GABAPENTIN 300 MG CAP PO SCH (08:17)
[2016-08-01] MEDS: QUEtiapine 100 MG TAB PO SCH (08:18)
[2016-08-01 08:50] LABS: Anion Gap 12 mmol/L; Blood Urea Nitrogen 25 mg/dL (9-20); Calcium 8.7 mg/dL (8.4-10.2); Carbon Dioxide 28 mmol/L (22-30); Chloride 99 mmol/L (98-107); Glucose 87 mg/dL (74-99); Non-African American GFR(MDRD) >60 (>60 ml/min/1.73 sqM); Potassium 4.2 mmol/L (3.5-5.1); Sodium 139 mmol/L (137-145)
[2016-08-01] MEDS: ATORVASTATIN 80 MG TAB PO SCH (08:56)
[2016-08-01 10:39] VITALS: PULSE 90
[2016-08-01] MEDS ORDERED: DOCUSATE 100 MG CAP PO SCH (10:45)
[2016-08-01] MEDS ORDERED: SENNOSIDES-DOCUSATE SODIUM 1 EACH TAB PO SCH (10:45)
[2016-08-01 11:48] LABS: Glucose,Whole Blood 122 mg/dL (75-99)
[2016-08-01] MEDS: HYDROcodone/APAP 5-325MG 1 EACH TAB PO PRN (11:49)
--- NOTE | 2016-08-01 12:59 | P.PN ---
Subjective Principal diagnosis: Ascites history of fatty liver cirrhosis 75-year-old male with a history of fatty liver disease cirrhosis presents with worsening abdominal distention and ascites. He underwent diagnostic paracentesis yesterday with 60 mL removal. Anticipate discharge today. Afebrile. Objective - Vital Signs Vital signs: Vital Signs Temp 97.0 F L 08/01/16 07:00 Pulse 90 08/01/16 08:00 Resp 20 08/01/16 08:00 BP 140/77 08/01/16 07:00 Pulse Ox 93 L 08/01/16 07:00 Intake & Output 07/31/16 08/01/16 08/01/16 18:59 06:59 18:59 Intake Total 720 500 600 Balance 720 500 600 Weight 111 kg 116 kg Intake: Oral 720 500 600 Other: # Voids 3 2 # Bowel Movements 0 - Exam General appearance: The patient is alert, oriented, in no acute distress. HET: Head is normocephalic and atraumatic. Pupils are equal and reactive. Oropharynx is clear without lesions. Neck: Supple without lymphadenopathy. Trachea midline. Heart: S1 S2. Regular rate and rhythm. Lungs: No crackles or wheezes are heard. Abdomen: Soft, nontender, distended obese with pannus mild ascites with bowel sounds. No peritoneal signs. No palpable organomegaly or masses. Extremities: Normal skin color and turgor. No cyanosis, rash, ulceration, clubbing, or edema. Radial and pedal pulses are 2/4 bilaterally. Neurological: No focal deficits. Strength and sensation are grossly intact. - Labs CBC & Chem 7: 07/31/16 11:06 08/01/16 07:41 Labs: Abnormal Lab Results - Last 24 Hours (Table) 07/31/16 07/31/16 08/01/16 Range/Units 17:26 21:17 07:41 BUN 25 H (9-20) mg/dL POC Glucose (mg/dL) 168 H 128 H (75-99) mg/dL 08/01/16 Range/Units 11:40 BUN (9-20) mg/dL POC Glucose (mg/dL) 122 H (75-99) mg/dL Microbiology - Last 24 Hours (Table) 07/31/16 15:30 Gram Stain - Preliminary Ascites Fluid Body Fluid Culture - Preliminary Assessment and Plan (1) Ascites Narrative/Plan: Status post diagnostic paracentesis with 60 mL removal. Status: Acute (2) Cirrhosis Status: Acute Plan: 1. Lasix 40mg BID. Aldactone 100mg daily. 2. RTO 1-2 weeks. Low salt diet. Assessment and plan a care discussed with Dr. Shaw
--- NOTE | 2016-08-02 10:09 | DS ---
DATE OF ADMISSION: 07/30/2016 DATE OF DISCHARGE: 08/01/2016 FINAL DIAGNOSES: 1. Alcoholic cirrhosis with hepatomegaly likely causing portal hypertension causing secondary large ascites, symptomatic. 2. Chronic obstructive pulmonary disease in an ex-smoker. 3. Diabetes mellitus type 2. 4. Hyperlipidemia. 5. Essential hypertension. 6. Benign prostatic hypertrophy. 7. Hypothyroidism. 8. Diabetes mellitus type 2, causing peripheral neuropathy. 9. Primary osteoarthritis in multiple joints, bilaterally. 10. Depression, anxiety, chronic, controlled. CONSULTATION: Dr. Yumi Shaw. HOSPITAL COURSE: This patient with cirrhosis presented with large ascites. Only small amount could be tapped. Patient is put on fluid restriction, Lasix, Aldactone. Doing better. Patient educated about fluid restriction. LABS: Reviewed. On examination: ABDOMEN: Distended. Dullness to percussion, but better from admission. CONSULTATION: Dr. Yumi Shaw from GI. DISCHARGE MEDICATIONS: 1. NovoLog FlexPen a.c. t.i.d. 2. Lantus 8 units subcu q.h.s. 3. Artificial tears 2 drops each eye q.1 hour p.r.n. 4. Lipitor 80 mg daily. 5. Vitamin D3 5000 units p.o. daily. 6. Vitamin B12 500 mcg p.o. daily. 7. Depakote 200 mg p.o. q.h.s. 8. Neurontin 300 mg p.o. t.i.d. 9. Senokot 100 mg p.o. daily. 10. Seroquel 200 mg p.o. q.h.s. 11. Metformin 1000 mg p.o. b.i.d. 12. Lasix 40 mg p.o. daily. 13. Lactulose 20 grams p.o. daily. 14. ( ) 100 mg p.o. b.i.d. Follow with Dr. Angel on 08/28/[address] Eisenberg on 08/29/16. BMP in one week. Fluid restriction 2000 mL a day, low sodium diet. Discharge planning more than 35 minutes.
== END 2016-08-01 15:45 | disposition home health service (06) | DRG 433 ==
LOC: EC 15:17 → 4MS4W 20:03
PROVIDERS: ADMIT Hospitalist; ATTEND Hospitalist
PROC: 0W9G3ZX Drainage of Peritoneal Cavity, Percutaneous Approach, Diagnostic (ICD-10-PCS; principal; 2016-07-31)
DX: K70.31 Alcoholic cirrhosis of liver with ascites (principal); K76.6 Portal hypertension; E11.42 Type 2 diabetes mellitus with diabetic polyneuropathy; Z99.81 Dependence on supplemental oxygen; E88.01 Alpha-1-antitrypsin deficiency; K76.0 Fatty (change of) liver, not elsewhere classified; J44.9 Chronic obstructive pulmonary disease, unspecified; I10 Essential (primary) hypertension; E03.9 Hypothyroidism, unspecified; M19.91 Primary osteoarthritis, unspecified site; N40.0 Benign prostatic hyperplasia without lower urinary tract symptoms; M19.90 Unspecified osteoarthritis, unspecified site; H91.90 Unspecified hearing loss, unspecified ear; R60.0 Localized edema; E78.5 Hyperlipidemia, unspecified; F32.9 Major depressive disorder, single episode, unspecified; F41.9 Anxiety disorder, unspecified; Z16.24 Resistance to multiple antibiotics; Z79.84 Long term (current) use of oral hypoglycemic drugs; Z79.4 Long term (current) use of insulin; Z79.899 Other long term (current) drug therapy; Z86.14 Personal history of Methicillin resistant Staphylococcus aureus infection; Z87.891 Personal history of nicotine dependence; Z98.42 Cataract extraction status, left eye; Z98.41 Cataract extraction status, right eye; Z81.1 Family history of alcohol abuse and dependence; Z83.79 Family history of other diseases of the digestive system; Z80.8 Family history of malignant neoplasm of other organs or systems; Z82.79 Family history of other congenital malformations, deformations and chromosomal abnormalities
CPT/HCPCS: 36415; 49083; 71020; 74177; 80048; 80053; 81003; 82042; 82105; 82150; 82550; 82553; 82945; 83036; 83690; 83880; 84484; 85025; 85027; 85610; 85730; 87070; 87205; 88108; 88305; 88341; 88342; 89050; 93005; 96374; 99285

== ENCOUNTER → 2016-08-08 | Outpatient (CLI) | payer MEDICARE ==
[2016-08-08 09:01] LABS: Anion Gap 11 mmol/L; Blood Urea Nitrogen 23 mg/dL (9-20); Carbon Dioxide 30 mmol/L (22-30); Chloride 100 mmol/L (98-107); Glucose 126 mg/dL (74-99); Non-African American GFR(MDRD) >60 (>60 ml/min/1.73 sqM); Sodium 141 mmol/L (137-145)
[2016-08-08 09:08] LABS: Calcium 9.2 mg/dL (8.4-10.2); Potassium 4.7 mmol/L (3.5-5.1)
== END | disposition home or self-care (01) ==
LOC: LABWHC1 08:20
PROVIDERS: ATTEND Hospitalist
DX: K74.60 Unspecified cirrhosis of liver (principal)
CPT/HCPCS: 36415; 80048

== ENCOUNTER → 2016-09-08 | Outpatient (CLI) | payer MEDICARE ==
[2016-09-08 17:34] LABS: CH 33.8; CHCM 33.7; HCT 38.3 % (39.0-53.0); HDW 2.55; HGB 13.2 gm/dL (13.0-17.5); MCH 34.8 pg (25.0-35.0); MCHC 34.5 g/dL (31.0-37.0); MCV 100.7 fL (80.0-100.0); Macrocytosis Slight; RDW 14.8 % (11.5-15.5); WBC 4.9 k/uL (3.8-10.6)
[2016-09-08 17:42] LABS: INR 1.4 (<1.1); Prothrombin Time 13.5 sec (9.0-12.0)
[2016-09-08 18:27] LABS: ALT 34 U/L (21-72); AST 57 U/L (17-59); Alkaline Phosphatase 125 U/L (38-126); Anion Gap 12 mmol/L; Blood Urea Nitrogen 28 mg/dL (9-20); Calcium 8.9 mg/dL (8.4-10.2); Carbon Dioxide 25 mmol/L (22-30); Chloride 97 mmol/L (98-107); Glucose 261 mg/dL (74-99); Non-African American GFR(MDRD) >60 (>60 ml/min/1.73 sqM); Potassium 4.8 mmol/L (3.5-5.1); Sodium 134 mmol/L (137-145); Total Bilirubin 1.5 mg/dL (0.2-1.3); Total Protein 7.9 g/dL (6.3-8.2)
--- NOTE | 2016-09-09 12:57 | XR ---
EXAMINATION TYPE: XR chest 2V DATE OF EXAM: 09/08/2016 4:59 PM COMPARISON: Prior chest x-ray first of July 2016 HISTORY: Shortness of breath TECHNIQUE: Frontal and lateral views of the chest are obtained. FINDINGS: Bandlike area of increased attenuation at the left lung base likely reflects scarring. No evident pneumothorax or pleural effusion. Cardiomediastinal silhouette, pulmonary vascularity and hil a are within normal limits. There is a mild spinal curvature. Interstitium mildly increased. IMPRESSION: No acute cardiopulmonary process. Suspect chronic changes, scarring, possible interstiti al lung disease.
== END ==
LOC: RADXRMAIN 16:39
PROVIDERS: ATTEND Internal Medicine Gastroenterology
DX: R06.02 Shortness of breath (principal); K74.60 Unspecified cirrhosis of liver; R18.8 Other ascites
CPT/HCPCS: 36415; 71020; 80053; 82105; 85027; 85610